=== PATIENT | female | born 1950 | race Caucasian/White ===

== ENCOUNTER 2021-06-28 17:17 | Inpatient (IN) | payer MEDICARE, BC ==
[~2021-06-28] VITALS: Ht 152.4 cm; Wt 66.2 kg
[2021-06-28] MEDS ORDERED: SODIUM CHLORIDE 0.9% 1000ML 1,000 ML IV SCH ×4 (18:00→20:30)
[2021-06-28 18:13] LABS: BASOPHILS # (AUTO) 0.1 (0.0-0.1); BASOPHILS % 0.7 % (0.0-1.0); HEMATOCRIT 50.1 % (34.2-44.1); HEMOGLOBIN 15.8 g/dL (12.0-16.0); LYMPHOCYTES # (AUTO) 0.9 (1.0-3.2); LYMPHOCYTES % 8.2 % (18.0-39.1); MEAN CORPUSCULAR HGB CONC 31.5 g/dL (31-35); MEAN CORPUSCULAR VOLUME 85.5 fL (81-99); MONOCYTES # (AUTO) 1.4 (0.2-0.8); MONOCYTES % 12.6 % (4.4-11.3); NEUTROPHILS # (AUTO) 8.8 (2.1-6.9); PLATELET COUNT 130 x10e3/uL (140-360); RED BLOOD COUNT 5.86 x10e6/uL (3.6-5.1); RED CELL DISTRIBUTION WIDTH 19.7 % (11.7-14.4)
[2021-06-28 20:41] LABS: CLARITY,URINE HAZY (CLEAR); COLOR,URINE YELLOW (YELLOW); LEUKOCYTE ESTERASE ,URINE NEGATIVE (NEGATIVE); NITRITE,URINE POSITIVE (NEGATIVE); PROTEIN,URINE DIPSTICK 2+ (NEGATIVE)
[2021-06-28 20:42] LABS: AMORPHOUS SEDIMENT,URINE FEW (FEW); BACTERIA,URINE MANY /HPF; EPITHELIAL CELLS,URINE FEW /LPF; KETONES,URINE TRACE (NEGATIVE); URINE UROBILINOGEN 0.2 mg/dL (0.2 - 1)
[2021-06-28 20:43] LABS: MUCUS,URINE MODERATE (RARE)
[2021-06-28 20:59] LABS: ALBUMIN 2.4 g/dL (3.5-5.0); ALBUMIN/GLOBULIN RATIO 0.8 (0.8-2.0); ANION GAP 11.9 mmol/L (8-16); CREATININE, SERUM 0.85 mg/dL (0.57-1.11)
[2021-06-28] MEDS ORDERED: CEFTRIAXONE 1 GM VIAL IV ONE (21:00)
[2021-06-28 21:03] LABS: POTASSIUM 2.9 mmol/L (3.5-5.1)
[2021-06-28] MEDS ORDERED: POTASSIUM CHLORIDE 20 MEQ TAB CR PO ONE (21:17)
[2021-06-28] MEDS ORDERED: SODIUM CHLORIDE 0.9% 50ML 50 ML ONE ×2 (21:17→22:53)
[2021-06-28] MEDS ORDERED: CEFTRIAXONE 1 GM VIAL ONE (21:17)
[2021-06-28] MEDS ORDERED: CEFTRIAXONE 1 GM in SODIUM CHLORIDE 0.9% 50ML 50 ML IV ONE (21:30)
[2021-06-28] MEDS ORDERED: ALBUTEROL/IPRATROPIUM 3 ML NEB NEB ONE (21:30)
[2021-06-28] MEDS ORDERED: POTASSIUM CHLORIDE 20 MEQ TAB CR PO STA (21:32)
[2021-06-28] MEDS ORDERED: IBANDRONATE SO150 MG PO (21:47)
[2021-06-28] MEDS ORDERED: PLAQUENIL200 MG PO (21:48)
[2021-06-28] MEDS ORDERED: PROVENTIL HFA6.7 GM INH (21:48)
[2021-06-28] MEDS ORDERED: ADVAIR 500/501 EA INH (21:48)
[2021-06-28] MEDS ORDERED: CYMBALTA30 MG PO (21:48)
[2021-06-28] MEDS ORDERED: TYLENOL #3 PO (21:48)
[2021-06-28] MEDS ORDERED: NIFEDIPINE ER30 M1 PO (21:48)
[2021-06-28] MEDS ORDERED: METOPROLOL SUCC50 MG PO (21:48)
[2021-06-28] MEDS ORDERED: CLOPIDOGREL75 MG PO (21:48)
[2021-06-28] MEDS ORDERED: TRAZODONE HCL100 MG PO (21:48)
[2021-06-28] MEDS ORDERED: PANTOPRAZOLE SO40 MG PO (21:48)
[2021-06-28] MEDS: ONDANSETRON HCL INJ 2MG/ML 2ML 2 MG/ML VIAL IV PRN (22:00)
[2021-06-28] MEDS: Morphine 4mg Syringe 4 MG/ML INJ IV PRN (22:00)
[2021-06-28 22:54] VITALS: BP 145/75
[2021-06-28 23:30] VITALS: BP 145/75
[2021-06-29 01:45] VITALS: BP 125/82
[2021-06-29 04:00] VITALS: BP 138/73
[2021-06-29] MEDS: SALMETEROL/FLUTICASONE 500/50 INH SCH ×3 (06:45→19:15)
[2021-06-29] MEDS ORDERED: ALBUTEROL SULFATE HFA 8GM INHALATION AEROSOL INH PRN (06:45)
[2021-06-29 06:49] LABS: BASOPHILS # (AUTO) 0.1 (0.0-0.1); BASOPHILS % 0.9 % (0.0-1.0); EOSINOPHILS % 0.1 % (0.0-6.0); HEMATOCRIT 44.6 % (34.2-44.1); HEMOGLOBIN 13.9 g/dL (12.0-16.0); LYMPHOCYTES # (AUTO) 0.6 (1.0-3.2); LYMPHOCYTES % 7.1 % (18.0-39.1); MEAN CORPUSCULAR HEMOGLOBIN 26.9 pg (28-32); MEAN CORPUSCULAR HGB CONC 31.2 g/dL (31-35); MEAN CORPUSCULAR VOLUME 86.3 fL (81-99); MONOCYTES # (AUTO) 0.7 (0.2-0.8); MONOCYTES % 7.9 % (4.4-11.3); NEUTROPHILS # (AUTO) 7.2 (2.1-6.9); NEUTROPHILS % 83.5 % (38.7-80.0); RED BLOOD COUNT 5.17 x10e6/uL (3.6-5.1); RED CELL DISTRIBUTION WIDTH 19.1 % (11.7-14.4)
[2021-06-29 06:53] LABS: PLATELET COUNT 105 x10e3/uL (140-360)
[2021-06-29 07:13] LABS: ANION GAP 12.1 mmol/L (8-16); CALCIUM 8.3 mg/dL (8.4-10.2); CREATININE, SERUM 0.97 mg/dL (0.57-1.11); POTASSIUM 3.1 mmol/L (3.5-5.1)
[2021-06-29] MEDS: SODIUM CHLORIDE 0.9% 1000ML 1,000 ML IV SCH ×2 (08:30→21:50)
[2021-06-29] MEDS ORDERED: CEFTRIAXONE 1 GM in SODIUM CHLORIDE 0.9% 50ML 50 ML IV SCH (09:00)
[2021-06-29] MEDS: HYDROXYCHLOROQUINE SULFATE 200 MG TAB PO SCH (09:00)
[2021-06-29] MEDS ORDERED: PANTOPRAZOLE SOD 40 MG TABEC PO SCH (09:00)
[2021-06-29 09:35] VITALS: BP 139/73
[2021-06-29] MEDS: CLOPIDOGREL BISULFATE 75 MG TAB PO SCH (09:56)
[2021-06-29] MEDS: DULOXETINE HCL 30 MG DELAYED RELEASE PO SCH (09:56)
[2021-06-29] MEDS: NIFEDIPINE CR 30 MG TAB PO SCH (09:57)
[2021-06-29] MEDS: PANTOPRAZOLE SOD 40 MG TABEC PO SCH (09:57)
[2021-06-29] MEDS: METOPROLOL SUCCINATE 50 MG TAB XL PO SCH (09:59)
[2021-06-29 12:29] VITALS: BP 137/74
[2021-06-29 18:00] VITALS: BP 115/63
[2021-06-29] MEDS ORDERED: DEXTROSE 50% SYRINGE 50 ML IV PRN (18:30)
[2021-06-29 20:00] VITALS: BP 107/60
[2021-06-29] MEDS: CEFTRIAXONE 1 GM in SODIUM CHLORIDE 0.9% 50ML 50 ML IV SCH (20:51)
[2021-06-29] MEDS: TRAZODONE HCL 50 MG TAB PO SCH (20:51)
[2021-06-29] MEDS ORDERED: INSULIN LISPRO 100 UNIT/1 ML 3ML VIAL SQ SCH (21:00)
[2021-06-30] VITALS (8 sets, daily range): BP systolic 96–123; BP diastolic 59–78
[2021-06-30] MEDS: ACETAMINOPHEN 325 MG TAB PO PRN (00:13)
[2021-06-30] MEDS: ONDANSETRON HCL INJ 2MG/ML 2ML 2 MG/ML VIAL IV PRN (07:16)
[2021-06-30] MEDS: Morphine 4mg Syringe 4 MG/ML INJ IV PRN (07:17)
[2021-06-30 07:39] LABS: BASOPHILS # (AUTO) 0.1 (0.0-0.1); BASOPHILS % 0.7 % (0.0-1.0); EOSINOPHILS % 0.2 % (0.0-6.0); HEMATOCRIT 46.4 % (34.2-44.1); HEMOGLOBIN 13.7 g/dL (12.0-16.0); LYMPHOCYTES # (AUTO) 0.8 (1.0-3.2); LYMPHOCYTES % 6.5 % (18.0-39.1); MEAN CORPUSCULAR HEMOGLOBIN 26.6 pg (28-32); MEAN CORPUSCULAR HGB CONC 29.5 g/dL (31-35); MEAN CORPUSCULAR VOLUME 90.1 fL (81-99); MONOCYTES # (AUTO) 0.8 (0.2-0.8); MONOCYTES % 6.5 % (4.4-11.3); NEUTROPHILS # (AUTO) 10.3 (2.1-6.9); NEUTROPHILS % 85.1 % (38.7-80.0); PLATELET COUNT 91 x10e3/uL (140-360); RED BLOOD COUNT 5.15 x10e6/uL (3.6-5.1); RED CELL DISTRIBUTION WIDTH 19.9 % (11.7-14.4)
[2021-06-30] MEDS: SALMETEROL/FLUTICASONE 500/50 INH SCH ×2 (07:58→20:15)
[2021-06-30 08:00] LABS: ANION GAP 9.4 mmol/L (8-16); CREATININE, SERUM 0.93 mg/dL (0.57-1.11); POTASSIUM 3.4 mmol/L (3.5-5.1)
[2021-06-30] MEDS: PANTOPRAZOLE SOD 40 MG TABEC PO SCH (08:37)
[2021-06-30] MEDS: HYDROXYCHLOROQUINE SULFATE 200 MG TAB PO SCH (08:37)
[2021-06-30] MEDS: CLOPIDOGREL BISULFATE 75 MG TAB PO SCH (08:37)
[2021-06-30] MEDS: DULOXETINE HCL 30 MG DELAYED RELEASE PO SCH (08:37)
[2021-06-30] MEDS: CEFTRIAXONE 1 GM in SODIUM CHLORIDE 0.9% 50ML 50 ML IV SCH (08:37)
[2021-06-30] MEDS: METOPROLOL SUCCINATE 50 MG TAB XL PO SCH (08:38)
[2021-06-30] MEDS: NIFEDIPINE CR 30 MG TAB PO SCH (08:38)
[2021-06-30] MEDS: SODIUM CHLORIDE 0.9% 1000ML 1,000 ML IV SCH ×2 (12:27→21:44)
[2021-06-30] MEDS ORDERED: POTASSIUM CHLORIDE 20 MEQ TAB CR PO ONE (14:00)
[2021-06-30] MEDS ORDERED: POTASSIUM CHLORIDE 10MEQ EA PO ONE (15:00)
[2021-06-30] MEDS: TRAZODONE HCL 50 MG TAB PO SCH (21:43)
[2021-07-01] VITALS (9 sets, daily range): BP systolic 84–115; BP diastolic 51–66
[2021-07-01] MEDS ORDERED: MULTIVITAMINS1 EAC6 PO (07:14)
[2021-07-01] MEDS ORDERED: CEPHALEXIN500 MG PO (07:14)
[2021-07-01 08:17] LABS: BASOPHILS # (AUTO) 0.1 (0.0-0.1); BASOPHILS % 0.6 % (0.0-1.0); EOSINOPHILS % 0.1 % (0.0-6.0); HEMOGLOBIN 12.9 g/dL (12.0-16.0); LYMPHOCYTES # (AUTO) 0.4 (1.0-3.2); LYMPHOCYTES % 3.4 % (18.0-39.1); MEAN CORPUSCULAR HGB CONC 32.3 g/dL (31-35); MEAN CORPUSCULAR VOLUME 83.9 fL (81-99); MONOCYTES # (AUTO) 0.6 (0.2-0.8); MONOCYTES % 4.7 % (4.4-11.3); NEUTROPHILS # (AUTO) 11.3 (2.1-6.9); NEUTROPHILS % 90.3 % (38.7-80.0); PLATELET COUNT 84 x10e3/uL (140-360); RED BLOOD COUNT 4.77 x10e6/uL (3.6-5.1); RED CELL DISTRIBUTION WIDTH 19.4 % (11.7-14.4)
[2021-07-01] MEDS: SALMETEROL/FLUTICASONE 500/50 INH SCH ×2 (08:30→19:05)
[2021-07-01 08:39] LABS: ANION GAP 11.4 mmol/L (8-16); CALCIUM 7.8 mg/dL (8.4-10.2); CREATININE, SERUM 0.88 mg/dL (0.57-1.11); POTASSIUM 3.4 mmol/L (3.5-5.1)
[2021-07-01] MEDS: CEFTRIAXONE 1 GM in SODIUM CHLORIDE 0.9% 50ML 50 ML IV SCH (08:55)
[2021-07-01] MEDS: HYDROXYCHLOROQUINE SULFATE 200 MG TAB PO SCH (09:04)
[2021-07-01] MEDS: DULOXETINE HCL 30 MG DELAYED RELEASE PO SCH (09:04)
[2021-07-01] MEDS: PANTOPRAZOLE SOD 40 MG TABEC PO SCH (09:04)
[2021-07-01] MEDS: NIFEDIPINE CR 30 MG TAB PO SCH (09:04)
[2021-07-01] MEDS: CLOPIDOGREL BISULFATE 75 MG TAB PO SCH (09:04)
[2021-07-01] MEDS: METOPROLOL SUCCINATE 50 MG TAB XL PO SCH (09:05)
[2021-07-01] MEDS: ACETAMINOPHEN 325 MG TAB PO PRN (12:25)
[2021-07-01] MEDS: SODIUM CHLORIDE 0.9% 1000ML 1,000 ML IV SCH (16:52)
[2021-07-01] MEDS ORDERED: TRAMADOL HCL 50 MG TAB PO PRN (19:15)
[2021-07-01] MEDS: TRAZODONE HCL 50 MG TAB PO SCH (20:53)
[2021-07-02] VITALS (8 sets, daily range): BP systolic 95–121; BP diastolic 52–72
[2021-07-02] MEDS: SALMETEROL/FLUTICASONE 500/50 INH SCH (07:13)
[2021-07-02] MEDS: SODIUM CHLORIDE 0.9% 1000ML 1,000 ML IV SCH (07:26)
[2021-07-02] MEDS: CEFTRIAXONE 1 GM in SODIUM CHLORIDE 0.9% 50ML 50 ML IV SCH (09:05)
[2021-07-02] MEDS: DULOXETINE HCL 30 MG DELAYED RELEASE PO SCH (09:06)
[2021-07-02] MEDS: CLOPIDOGREL BISULFATE 75 MG TAB PO SCH (09:06)
[2021-07-02] MEDS: HYDROXYCHLOROQUINE SULFATE 200 MG TAB PO SCH (09:06)
[2021-07-02] MEDS: NIFEDIPINE CR 30 MG TAB PO SCH (09:08)
[2021-07-02] MEDS: PANTOPRAZOLE SOD 40 MG TABEC PO SCH (09:08)
[2021-07-02] MEDS: METOPROLOL SUCCINATE 50 MG TAB XL PO SCH (09:08)
[2021-07-02] MEDS ORDERED: ONDANSETRON HCL 4 MG ORAL DISINTEGRATING TAB PO PRN (12:30)
[2021-07-02] MEDS ORDERED: FUROSEMIDE INJ 10 MG/ML 4 ML VIAL IV ONE (16:15)
[2021-07-02] MEDS ORDERED: FONDAPARINUX SODIUM 2.5 MG/0.5 ML SYR SQ SCH (18:00)
[2021-07-02] MEDS ORDERED: SODIUM CHLORIDE 0.9% 50ML 0 ML ONE (19:30)
[2021-07-02] MEDS ORDERED: IOPAMIDOL 370 MG/ML 200 ML INFUS..BTL INJ ONE (19:30)
[2021-07-02 20:04] LABS: BASOPHILS # (AUTO) 0.1 (0.0-0.1); BASOPHILS % 0.5 % (0.0-1.0); HEMATOCRIT 47.2 % (34.2-44.1); HEMOGLOBIN 15.2 g/dL (12.0-16.0); LYMPHOCYTES # (AUTO) 0.6 (1.0-3.2); LYMPHOCYTES % 3.8 % (18.0-39.1); MEAN CORPUSCULAR HEMOGLOBIN 27.1 pg (28-32); MEAN CORPUSCULAR HGB CONC 32.2 g/dL (31-35); MEAN CORPUSCULAR VOLUME 84.3 fL (81-99); MONOCYTES # (AUTO) 0.6 (0.2-0.8); MONOCYTES % 3.8 % (4.4-11.3); NEUTROPHILS # (AUTO) 13.9 (2.1-6.9); NEUTROPHILS % 90.7 % (38.7-80.0); RED CELL DISTRIBUTION WIDTH 20.5 % (11.7-14.4)
[2021-07-02 20:09] LABS: PLATELET COUNT 41 x10e3/uL (140-360)
[2021-07-02 20:19] LABS: ALBUMIN 1.9 g/dL (3.5-5.0); ALBUMIN/GLOBULIN RATIO 0.7 (0.8-2.0); ANION GAP 12.1 mmol/L (8-16); CALCIUM 7.9 mg/dL (8.4-10.2); CREATININE, SERUM 1.08 mg/dL (0.57-1.11); POTASSIUM 3.1 mmol/L (3.5-5.1)
[2021-07-02] MEDS: FUROSEMIDE INJ 10 MG/ML 2 ML VIAL IV SCH (21:00)
[2021-07-02] MEDS: TRAZODONE HCL 50 MG TAB PO SCH (21:00)
[2021-07-03] VITALS (8 sets, daily range): BP systolic 93–113; BP diastolic 62–76
[2021-07-03] MEDS ORDERED: SODIUM CHLORIDE 0.9% 50ML 50 ML ONE (05:43)
[2021-07-03] MEDS ORDERED: IOPAMIDOL 370 MG/ML 200 ML INFUS..BTL INJ ONE (05:43)
[2021-07-03] MEDS ORDERED: METOPROLOL SUCCINATE 25 MG TAB XL PO SCH (09:00)
[2021-07-03] MEDS: CEFTRIAXONE 1 GM in SODIUM CHLORIDE 0.9% 50ML 50 ML IV SCH (09:11)
[2021-07-03] MEDS: FUROSEMIDE INJ 10 MG/ML 2 ML VIAL IV SCH ×2 (09:11→21:29)
[2021-07-03] MEDS: METHYLPREDNISOLONE SOD SUCC 40 MG/ML VIAL 1ML IV SCH ×2 (09:12→16:17)
[2021-07-03] MEDS: DULOXETINE HCL 30 MG DELAYED RELEASE PO SCH (09:12)
[2021-07-03] MEDS: HYDROXYCHLOROQUINE SULFATE 200 MG TAB PO SCH (09:13)
[2021-07-03] MEDS: CLOPIDOGREL BISULFATE 75 MG TAB PO SCH (09:13)
[2021-07-03] MEDS: PANTOPRAZOLE SOD 40 MG TABEC PO SCH (09:13)
[2021-07-03] MEDS ORDERED: POTASSIUM CHL 40 MEQ in SODIUM CHLORIDE 0.9% 250ML 250 ML IV ONE (11:30)
[2021-07-03] MEDS ORDERED: MAGNESIUM SULFATE 2GM/50ML 50 ML IV ONE (11:30)
[2021-07-03] MEDS ORDERED: POTASSIUM CHLORIDE 20MEQ/100ML 200 ML IV ONE (12:00)
[2021-07-03] MEDS: TRAZODONE HCL 50 MG TAB PO SCH (22:00)
[2021-07-04] VITALS (11 sets, daily range): BP systolic 99–141; BP diastolic 76–93
[2021-07-04] MEDS: METHYLPREDNISOLONE SOD SUCC 40 MG/ML VIAL 1ML IV SCH ×3 (01:10→21:00)
[2021-07-04 06:10] LABS: BASOPHILS # (AUTO) 0.1 (0.0-0.1); BASOPHILS % 0.4 % (0.0-1.0); HEMATOCRIT 47.1 % (34.2-44.1); HEMOGLOBIN 15.4 g/dL (12.0-16.0); LYMPHOCYTES # (AUTO) 1.4 (1.0-3.2); LYMPHOCYTES % 6.5 % (18.0-39.1); MEAN CORPUSCULAR HEMOGLOBIN 26.7 pg (28-32); MEAN CORPUSCULAR HGB CONC 32.7 g/dL (31-35); MEAN CORPUSCULAR VOLUME 81.6 fL (81-99); MONOCYTES # (AUTO) 0.6 (0.2-0.8); MONOCYTES % 2.8 % (4.4-11.3); NEUTROPHILS # (AUTO) 18.4 (2.1-6.9); RED BLOOD COUNT 5.77 x10e6/uL (3.6-5.1); RED CELL DISTRIBUTION WIDTH 20.1 % (11.7-14.4)
[2021-07-04 06:29] LABS: PLATELET COUNT 45 x10e3/uL (140-360)
[2021-07-04 06:34] LABS: B-TYPE NATRIURETIC PEPTIDE2 294.6 pg/mL (0-100)
[2021-07-04 06:37] LABS: ALBUMIN/GLOBULIN RATIO 0.7 (0.8-2.0); ANION GAP 15.1 mmol/L (8-16); CALCIUM 8.1 mg/dL (8.4-10.2); CHOL/HDL RATIO 15.6 (3.0-3.6); CREATININE, SERUM 1.43 mg/dL (0.57-1.11); MAGNESIUM 2.3 MG/DL (1.3-2.1); POTASSIUM 3.1 mmol/L (3.5-5.1)
[2021-07-04 06:57] LABS: THYROID STIMULATING HORMONE 0.227 uIU/mL (0.350-4.940)
[2021-07-04] MEDS: CEFTRIAXONE 1 GM in SODIUM CHLORIDE 0.9% 50ML 50 ML IV SCH (08:37)
[2021-07-04] MEDS: FUROSEMIDE INJ 10 MG/ML 2 ML VIAL IV SCH (08:37)
[2021-07-04] MEDS ORDERED: POTASSIUM CHLORIDE 20 MEQ TAB CR PO ONE ×2 (08:40→09:30)
[2021-07-04] MEDS: HYDROXYCHLOROQUINE SULFATE 200 MG TAB PO SCH (08:54)
[2021-07-04] MEDS: DULOXETINE HCL 30 MG DELAYED RELEASE PO SCH (08:54)
[2021-07-04] MEDS: PANTOPRAZOLE SOD 40 MG TABEC PO SCH (08:54)
[2021-07-04] MEDS ORDERED: POTASSIUM CHLORIDE 20MEQ/100ML 100 ML IV ONE (09:00)
[2021-07-04] MEDS ORDERED: LORAZEPAM INJ 2 MG/ML VIAL IV SCH (10:00)
[2021-07-04 14:41] LABS: ABG HCO3 25 mmol/L (22-26); ABG PCO2 42 mmHg (35-45); ABG PH 7.39 (7.35-7.45); ABG PO2 58 mmHg (80-105); ABG TCO2 27
[2021-07-04] MEDS ORDERED: DEXTROSE 5%/LACTATED RINGERS 1,000 ML IV ONE (16:00)
[2021-07-04 16:28] LABS: ANION GAP 16.1 mmol/L (8-16); CALCIUM 8.4 mg/dL (8.4-10.2); CREATININE, SERUM 1.68 mg/dL (0.57-1.11); POTASSIUM 3.1 mmol/L (3.5-5.1)
[2021-07-04] MEDS: CEFEPIME 1 GM in SODIUM CHLORIDE 0.9% 50ML 50 ML IV SCH (20:57)
[2021-07-04] MEDS: TRAZODONE HCL 50 MG TAB PO SCH (21:00)
[2021-07-05] VITALS (19 sets, daily range): BP systolic 117–145; BP diastolic 70–103
[2021-07-05 06:33] LABS: BASOPHILS # (AUTO) 0.1 (0.0-0.1); BASOPHILS % 0.5 % (0.0-1.0); HEMATOCRIT 45.7 % (34.2-44.1); HEMOGLOBIN 14.8 g/dL (12.0-16.0); LYMPHOCYTES # (AUTO) 2.3 (1.0-3.2); LYMPHOCYTES % 10.7 % (18.0-39.1); MEAN CORPUSCULAR HEMOGLOBIN 26.8 pg (28-32); MEAN CORPUSCULAR HGB CONC 32.4 g/dL (31-35); MEAN CORPUSCULAR VOLUME 82.8 fL (81-99); MONOCYTES # (AUTO) 0.9 (0.2-0.8); MONOCYTES % 4.2 % (4.4-11.3); NEUTROPHILS # (AUTO) 17.4 (2.1-6.9); RED BLOOD COUNT 5.52 x10e6/uL (3.6-5.1); RED CELL DISTRIBUTION WIDTH 19.9 % (11.7-14.4)
[2021-07-05 06:53] LABS: PLATELET COUNT 45 x10e3/uL (140-360)
[2021-07-05 06:58] LABS: ALBUMIN 2.3 g/dL (3.5-5.0); ALBUMIN/GLOBULIN RATIO 0.9 (0.8-2.0); CALCIUM 8.6 mg/dL (8.4-10.2); CREATININE, SERUM 1.7 mg/dL (0.57-1.11); POTASSIUM 3.3 mmol/L (3.5-5.1)
[2021-07-05 07:07] LABS: ANION GAP 15.3 mmol/L (8-16)
[2021-07-05] MEDS: HYDROXYCHLOROQUINE SULFATE 200 MG TAB PO SCH (08:09)
[2021-07-05] MEDS: PANTOPRAZOLE SOD 40 MG TABEC PO SCH (08:09)
[2021-07-05] MEDS: DULOXETINE HCL 30 MG DELAYED RELEASE PO SCH (08:09)
[2021-07-05] MEDS: METHYLPREDNISOLONE SOD SUCC 40 MG/ML VIAL 1ML IV SCH (08:59)
[2021-07-05] MEDS: CEFEPIME 1 GM in SODIUM CHLORIDE 0.9% 50ML 50 ML IV SCH (08:59)
[2021-07-05] MEDS: METOPROLOL TARTRATE INJ 1 MG/ML VIAL IV PRN ×2 (09:00→14:06)
[2021-07-05] MEDS: METOPROLOL TARTRATE INJ 1 MG/ML VIAL IV SCH ×2 (12:00→17:23)
[2021-07-05] MEDS ORDERED: DEXTROSE 5% 500ML 500 ML IV ONE (13:15)
[2021-07-05] MEDS ORDERED: POTASSIUM CHLORIDE 20 MEQ TAB CR PO NR (15:30)
[2021-07-05] MEDS: ACYCLOVIR SODIUM INJ 500 MG in SODIUM CHLORIDE 0.9% 100 ML 100 ML IV SCH (15:35)
[2021-07-05] MEDS: DEXTROSE 5% 1,000 ML IV SCH ×2 (16:16→22:45)
[2021-07-05] MEDS ORDERED: LACTATED RINGER'S 1,000 ML ONE (16:26)
[2021-07-05] MEDS ORDERED: LACTATED RINGER'S 250 ML IV ONE (16:30)
[2021-07-05] MEDS: POTASSIUM CHLORIDE 20MEQ/100ML 100 ML IV SCH ×2 (16:37→17:10)
[2021-07-05 16:51] LABS: INR 2.19; PROTHROMBIN TIME 25.6 seconds (11.9-14.5)
[2021-07-05] MEDS: Ampicillin INJ 2 GM in SODIUM CHLORIDE 0.9% 100 ML IV SCH (17:10)
[2021-07-05] MEDS: ACETAMINOPHEN 1000 MG/100 ML IV PRN (17:36)
[2021-07-05] MEDS ORDERED: LIDOCAINE HCL 1% LOCAL INJ 20 ML VIAL ONE (17:39)
[2021-07-05 18:55] LABS: BASOPHILS # (AUTO) 0.1 (0.0-0.1); BASOPHILS % 0.4 % (0.0-1.0); HEMATOCRIT 38.9 % (34.2-44.1); HEMOGLOBIN 12.6 g/dL (12.0-16.0); LYMPHOCYTES # (AUTO) 3.1 (1.0-3.2); LYMPHOCYTES % 14.7 % (18.0-39.1); MEAN CORPUSCULAR HEMOGLOBIN 26.9 pg (28-32); MEAN CORPUSCULAR HGB CONC 32.4 g/dL (31-35); MEAN CORPUSCULAR VOLUME 82.9 fL (81-99); MONOCYTES # (AUTO) 0.9 (0.2-0.8); MONOCYTES % 4.3 % (4.4-11.3); NEUTROPHILS # (AUTO) 15.9 (2.1-6.9); NEUTROPHILS % 76.5 % (38.7-80.0); PLATELET COUNT 51 x10e3/uL (140-360); RED BLOOD COUNT 4.69 x10e6/uL (3.6-5.1); RED CELL DISTRIBUTION WIDTH 19.6 % (11.7-14.4)
[2021-07-05 19:13] LABS: ANION GAP 13.7 mmol/L (8-16); CALCIUM 8.3 mg/dL (8.4-10.2); CREATININE, SERUM 1.66 mg/dL (0.57-1.11); MAGNESIUM 2.4 MG/DL (1.3-2.1); PHOSPHORUS 2.2 MG/DL (2.3-4.7); POTASSIUM 3.7 mmol/L (3.5-5.1)
[2021-07-05] MEDS: CEFTRIAXONE 2 GM in SODIUM CHLORIDE 0.9% 100 ML IV SCH (21:00)
[2021-07-06] VITALS (12 sets, daily range): BP systolic 88–104; BP diastolic 63–94
[2021-07-06] MEDS: METOPROLOL TARTRATE INJ 1 MG/ML VIAL IV SCH ×3 (00:20→11:21)
[2021-07-06] MEDS: ACETAMINOPHEN 1000 MG/100 ML IV PRN ×2 (00:30→06:16)
[2021-07-06] MEDS: Ampicillin INJ 2 GM in SODIUM CHLORIDE 0.9% 100 ML IV SCH ×4 (01:27→21:50)
[2021-07-06] MEDS: METOPROLOL TARTRATE INJ 1 MG/ML VIAL IV PRN (02:00)
[2021-07-06 03:07] LABS: BLAST CELLS % MANUAL 3; EOSINOPHILS % (MANUAL) 2 % (0-7); LYMPHOCYTES % (MANUAL) 17 % (19-48); MONOCYTES % (MANUAL) 5 % (3.4-9.0); NEUTROPHILS % (MANUAL) 73 % (40-74)
[2021-07-06 03:08] LABS: RBC MORPHOLOGY COMMENT NORMAL
[2021-07-06 03:09] LABS: PLATELET ESTIMATE MARKEDLY DECREASED; PLATELET MORPHOLOGY COMMENT NORMAL
[2021-07-06] MEDS: ACYCLOVIR SODIUM INJ 500 MG in SODIUM CHLORIDE 0.9% 100 ML 100 ML IV SCH ×2 (03:30→15:02)
[2021-07-06 05:36] LABS: BASOPHILS # (AUTO) 0.1 (0.0-0.1); BASOPHILS % 0.3 % (0.0-1.0); HEMATOCRIT 32.8 % (34.2-44.1); HEMOGLOBIN 10.3 g/dL (12.0-16.0); LYMPHOCYTES # (AUTO) 3.2 (1.0-3.2); LYMPHOCYTES % 13.6 % (18.0-39.1); MEAN CORPUSCULAR HEMOGLOBIN 26.8 pg (28-32); MEAN CORPUSCULAR HGB CONC 31.4 g/dL (31-35); MEAN CORPUSCULAR VOLUME 85.4 fL (81-99); MONOCYTES # (AUTO) 0.9 (0.2-0.8); MONOCYTES % 3.8 % (4.4-11.3); NEUTROPHILS # (AUTO) 18.6 (2.1-6.9); NEUTROPHILS % 78.5 % (38.7-80.0); PLATELET COUNT 60 x10e3/uL (140-360); RED BLOOD COUNT 3.84 x10e6/uL (3.6-5.1); RED CELL DISTRIBUTION WIDTH 19.5 % (11.7-14.4)
[2021-07-06 05:47] LABS: INR 2.64; PROTHROMBIN TIME 29.7 seconds (11.9-14.5)
[2021-07-06 05:56] LABS: ALBUMIN 2.1 g/dL (3.5-5.0); ALBUMIN/GLOBULIN RATIO 0.9 (0.8-2.0); ANION GAP 15.7 mmol/L (8-16); CREATININE, SERUM 1.81 mg/dL (0.57-1.11); POTASSIUM 3.7 mmol/L (3.5-5.1)
[2021-07-06] MEDS ORDERED: PHYTONADIONE 10 MG/ML AMP IM ONE (06:30)
[2021-07-06] MEDS ORDERED: DEXTROSE 5% 1,000 ML IV SCH (07:00)
[2021-07-06] MEDS ORDERED: FUROSEMIDE INJ 10 MG/ML 2 ML VIAL IV ONE (07:15)
[2021-07-06] MEDS ORDERED: FUROSEMIDE INJ 10 MG/ML 4 ML VIAL ONE (07:40)
[2021-07-06] MEDS ORDERED: SODIUM CHLORIDE 0.9% 250ML 250 ML ONE (07:40)
[2021-07-06] MEDS: DULOXETINE HCL 30 MG DELAYED RELEASE PO SCH (08:39)
[2021-07-06 09:02] LABS: ABG HCO3 27 mmol/L (22-26); ABG PCO2 41 mmHg (35-45); ABG PH 7.42 (7.35-7.45); ABG PO2 81 mmHg (80-105); ABG TCO2 28
[2021-07-06] MEDS: CEFTRIAXONE 2 GM in SODIUM CHLORIDE 0.9% 100 ML IV SCH ×2 (09:18→20:56)
[2021-07-06] MEDS: HALOPERIDOL LACTATE 5 MG/ML VIAL IV PRN ×2 (09:19→18:30)
[2021-07-06] MEDS: DEXMEDETOMIDINE 400MCG/NS100ML 100 ML IV PRN ×2 (11:20→20:57)
[2021-07-06] MEDS ORDERED: SODIUM CHLORIDE 0.45% 1,000 ML IV ONE (12:15)
[2021-07-06] MEDS: DEXTROSE 5% 1,000 ML IV SCH ×3 (13:57→21:50)
[2021-07-06] MEDS: VASOPRESSIN 60 UNIT in DEXTROSE 5% 50ML 57 ML IV SCH (13:58)
[2021-07-06 18:29] LABS: BASOPHILS % 0.1 % (0.0-1.0); HEMATOCRIT 27.8 % (34.2-44.1); HEMOGLOBIN 8.4 g/dL (12.0-16.0); LYMPHOCYTES # (AUTO) 2.9 (1.0-3.2); LYMPHOCYTES % 13.9 % (18.0-39.1); MEAN CORPUSCULAR HEMOGLOBIN 26.7 pg (28-32); MEAN CORPUSCULAR HGB CONC 30.2 g/dL (31-35); MEAN CORPUSCULAR VOLUME 88.3 fL (81-99); MONOCYTES # (AUTO) 0.7 (0.2-0.8); MONOCYTES % 3.4 % (4.4-11.3); NEUTROPHILS # (AUTO) 16.8 (2.1-6.9); NEUTROPHILS % 80.1 % (38.7-80.0); PLATELET COUNT 102 x10e3/uL (140-360); RED BLOOD COUNT 3.15 x10e6/uL (3.6-5.1); RED CELL DISTRIBUTION WIDTH 19.8 % (11.7-14.4)
[2021-07-06 19:08] LABS: ANION GAP 11.8 mmol/L (8-16); CALCIUM 7.8 mg/dL (8.4-10.2); CREATININE, SERUM 2.01 mg/dL (0.57-1.11); MAGNESIUM 2.2 MG/DL (1.3-2.1); POTASSIUM 3.8 mmol/L (3.5-5.1)
[2021-07-06 19:30] LABS: PHOSPHORUS 3.2 MG/DL (2.3-4.7)
[2021-07-06] MEDS ORDERED: ACETAMINOPHEN 1000 MG/100 ML IV PRN (20:00)
[2021-07-07] VITALS (12 sets, daily range): BP systolic 75–126; BP diastolic 54–76
[2021-07-07] MEDS: ACYCLOVIR SODIUM INJ 500 MG in SODIUM CHLORIDE 0.9% 100 ML 100 ML IV SCH ×2 (03:30→15:30)
[2021-07-07] MEDS: DEXTROSE 5% 1,000 ML IV SCH ×3 (04:14→18:45)
[2021-07-07] MEDS: Ampicillin INJ 2 GM in SODIUM CHLORIDE 0.9% 100 ML IV SCH ×3 (06:08→21:47)
[2021-07-07 07:16] LABS: BASOPHILS % 0.1 % (0.0-1.0); HEMATOCRIT 23.4 % (34.2-44.1); LYMPHOCYTES # (AUTO) 2.3 (1.0-3.2); LYMPHOCYTES % 13.7 % (18.0-39.1); MEAN CORPUSCULAR HEMOGLOBIN 26.7 pg (28-32); MEAN CORPUSCULAR HGB CONC 29.1 g/dL (31-35); MEAN CORPUSCULAR VOLUME 91.8 fL (81-99); MONOCYTES # (AUTO) 0.5 (0.2-0.8); MONOCYTES % 2.9 % (4.4-11.3); NEUTROPHILS # (AUTO) 13.5 (2.1-6.9); NEUTROPHILS % 81.7 % (38.7-80.0); PLATELET COUNT 74 x10e3/uL (140-360); RED BLOOD COUNT 2.55 x10e6/uL (3.6-5.1)
[2021-07-07 07:25] LABS: HEMOGLOBIN 6.8 g/dL (12.0-16.0)
[2021-07-07 08:22] LABS: ANION GAP 13.6 mmol/L (8-16); CALCIUM 7.1 mg/dL (8.4-10.2); CREATININE, SERUM 1.95 mg/dL (0.57-1.11); MAGNESIUM 2.1 MG/DL (1.3-2.1); POTASSIUM 3.6 mmol/L (3.5-5.1)
[2021-07-07] MEDS ORDERED: ACETAMINOPHEN 325 MG TAB PO STA (08:36)
[2021-07-07] MEDS ORDERED: SODIUM CHLORIDE 0.9% 250ML 250 ML IV ONE (08:45)
[2021-07-07] MEDS ORDERED: CALCIUM GLUCONATE 10% INJ 9.3 MEQ in SODIUM CHLORIDE 0.9% 100 ML 100 ML IV ONE (09:00)
[2021-07-07] MEDS: DULOXETINE HCL 30 MG DELAYED RELEASE PO SCH (09:00)
[2021-07-07] MEDS ORDERED: METRONIDAZOLE 500MG/NS 100ML 100 ML IV SCH (09:00)
[2021-07-07] MEDS ORDERED: SODIUM CHLORIDE 0.9% 250ML 250 ML ONE (09:35)
[2021-07-07 09:46] LABS: ABG HCO3 25 mmol/L (22-26); ABG PCO2 39 mmHg (35-45); ABG PH 7.41 (7.35-7.45); ABG PO2 138 mmHg (80-105); ABG TCO2 26
[2021-07-07] MEDS: CEFTRIAXONE 2 GM in SODIUM CHLORIDE 0.9% 100 ML IV SCH ×2 (11:00→22:35)
[2021-07-07] MEDS ORDERED: ACETAMINOPHEN 1000 MG/100 ML IV ONE (12:00)
[2021-07-07] MEDS: VASOPRESSIN 60 UNIT in DEXTROSE 5% 50ML 57 ML IV SCH (13:30)
[2021-07-07 17:44] LABS: INR 1.13; PROTHROMBIN TIME 15.3 seconds (11.9-14.5)
[2021-07-07 18:04] LABS: HYPOCHROMASIA SLIGHT; LYMPHOCYTES % (MANUAL) 5 % (19-48); MONOCYTES % (MANUAL) 12 % (3.4-9.0); NEUTROPHILS % (MANUAL) 83 % (40-74); NUCLEATED RED BLOOD CELLS 3; RBC MORPHOLOGY COMMENT NORMAL
[2021-07-07 18:05] LABS: PLATELET ESTIMATE MODERATELY DECREASED; PLATELET MORPHOLOGY COMMENT FEW LARGE
[2021-07-08] VITALS (9 sets, daily range): BP systolic 135–151; BP diastolic 72–95
[2021-07-08] MEDS: DEXTROSE 5% 1,000 ML IV SCH (03:29)
[2021-07-08] MEDS: ACYCLOVIR SODIUM INJ 500 MG in SODIUM CHLORIDE 0.9% 100 ML 100 ML IV SCH ×2 (03:29→15:40)
[2021-07-08 05:07] LABS: BASOPHILS # (AUTO) 0.1 (0.0-0.1); BASOPHILS % 0.2 % (0.0-1.0); EOSINOPHILS # (AUTO) 0.2 (0.0-0.4); EOSINOPHILS % 0.5 % (0.0-6.0); HEMATOCRIT 30.6 % (34.2-44.1); HEMOGLOBIN 9.8 g/dL (12.0-16.0); LYMPHOCYTES # (AUTO) 2.3 (1.0-3.2); LYMPHOCYTES % 7.1 % (18.0-39.1); MEAN CORPUSCULAR HEMOGLOBIN 27.7 pg (28-32); MEAN CORPUSCULAR VOLUME 86.4 fL (81-99); MONOCYTES # (AUTO) 0.8 (0.2-0.8); MONOCYTES % 2.3 % (4.4-11.3); NEUTROPHILS # (AUTO) 28.4 (2.1-6.9); PLATELET COUNT 93 x10e3/uL (140-360); RED BLOOD COUNT 3.54 x10e6/uL (3.6-5.1); RED CELL DISTRIBUTION WIDTH 18.5 % (11.7-14.4)
[2021-07-08 05:13] LABS: INR 0.99; PROTHROMBIN TIME 13.8 seconds (11.9-14.5)
[2021-07-08] MEDS: Ampicillin INJ 2 GM in SODIUM CHLORIDE 0.9% 100 ML IV SCH ×2 (05:25→15:19)
[2021-07-08 05:44] LABS: ALBUMIN/GLOBULIN RATIO 0.8 (0.8-2.0); ANION GAP 13.6 mmol/L (8-16); CALCIUM 7.5 mg/dL (8.4-10.2); CREATININE, SERUM 1.53 mg/dL (0.57-1.11)
[2021-07-08 05:46] LABS: POTASSIUM 2.6 mmol/L (3.5-5.1)
[2021-07-08 06:02] LABS: MAGNESIUM 1.7 MG/DL (1.3-2.1); PHOSPHORUS 2.1 MG/DL (2.3-4.7)
[2021-07-08] MEDS ORDERED: POTASSIUM CHLORIDE 20MEQ/100ML 200 ML IV ONE (07:10)
[2021-07-08 07:43] LABS: EOSINOPHILS % (MANUAL) 1 % (0-7); LYMPHOCYTES % (MANUAL) 3 % (19-48); MONOCYTES % (MANUAL) 1 % (3.4-9.0); NEUTROPHILS % (MANUAL) 94 % (40-74); NUCLEATED RED BLOOD CELLS 1; PLATELET ESTIMATE MODERATELY DECREASED; PLATELET MORPHOLOGY COMMENT NORMAL; RBC MORPHOLOGY COMMENT NORMAL
[2021-07-08] MEDS: DULOXETINE HCL 30 MG DELAYED RELEASE PO SCH (09:00)
[2021-07-08] MEDS ORDERED: FENTANYL CITRATE/PF 100MCG/2 ML INJ ONE (09:14)
[2021-07-08] MEDS ORDERED: MIDAZOLAM HCL 2 MG/2 ML VIAL ONE (09:14)
[2021-07-08] MEDS ORDERED: LIDOCAINE HCL 1% LOCAL INJ 20 ML VIAL ONE (09:15)
[2021-07-08] MEDS: CEFTRIAXONE 2 GM in SODIUM CHLORIDE 0.9% 100 ML IV SCH (10:16)
[2021-07-08 10:59] LABS: APPEARANCE,CSF CLOUDY (CLEAR); COLOR,CSF RED (COLORLESS); TUBE NUMBER 3
[2021-07-08 11:14] LABS: WHITE BLOOD CELL,CSF 16 cells/uL (0-5)
[2021-07-08 11:30] LABS: TOTAL PROTEIN,CSF 195.6 mg/dL (15-40)
[2021-07-08] MEDS ORDERED: POTASSIUM CHLORIDE 10MEQ/100ML 400 ML IV ONE (11:30)
[2021-07-08] MEDS ORDERED: CALCIUM GLUCONATE 10% INJ 9.3 MEQ in SODIUM CHLORIDE 0.9% 100 ML 100 ML IV ONE (12:30)
[2021-07-08 12:43] LABS: LYMPHOCYTES,CSF 71 % (40-80); MONOCYTES,CSF 9 %; NEUTROPHILS,CSF 20 % (0-6)
[2021-07-08] MEDS: VASOPRESSIN 60 UNIT in DEXTROSE 5% 50ML 57 ML IV SCH (12:56)
[2021-07-08] MEDS: D5.45%NS/KCL 20MEQ 1,000 ML IV SCH (13:01)
[2021-07-08 13:51] LABS: ANION GAP 12.5 mmol/L (8-16); CALCIUM 7.3 mg/dL (8.4-10.2); CREATININE, SERUM 1.47 mg/dL (0.57-1.11); POTASSIUM 3.5 mmol/L (3.5-5.1)
[2021-07-08] MEDS ORDERED: POTASSIUM PHOSPHATE 15 MM in SODIUM CHLORIDE 0.9% 250ML 250 ML IV ONE (15:00)
[2021-07-08] MEDS ORDERED: FUROSEMIDE INJ 10 MG/ML 2 ML VIAL IV NR (17:45)
[2021-07-08] MEDS: VANCOMYCIN HCL 125 MG CAPSULE NG SCH ×2 (21:20→23:27)
[2021-07-09] VITALS (15 sets, daily range): BP systolic 72–151; BP diastolic 49–88
[2021-07-09 05:12] LABS: BASOPHILS # (AUTO) 0.1 (0.0-0.1); BASOPHILS % 0.3 % (0.0-1.0); EOSINOPHILS % 0.1 % (0.0-6.0); HEMATOCRIT 36.1 % (34.2-44.1); HEMOGLOBIN 11.4 g/dL (12.0-16.0); LYMPHOCYTES # (AUTO) 1.5 (1.0-3.2); LYMPHOCYTES % 4.3 % (18.0-39.1); MEAN CORPUSCULAR HEMOGLOBIN 27.9 pg (28-32); MEAN CORPUSCULAR HGB CONC 31.6 g/dL (31-35); MEAN CORPUSCULAR VOLUME 88.3 fL (81-99); MONOCYTES # (AUTO) 0.8 (0.2-0.8); MONOCYTES % 2.2 % (4.4-11.3); NEUTROPHILS # (AUTO) 30.8 (2.1-6.9); NEUTROPHILS % 89.6 % (38.7-80.0); PLATELET COUNT 132 x10e3/uL (140-360); RED BLOOD COUNT 4.09 x10e6/uL (3.6-5.1); RED CELL DISTRIBUTION WIDTH 18.6 % (11.7-14.4)
[2021-07-09] MEDS: VANCOMYCIN HCL 125 MG CAPSULE NG SCH (05:30)
[2021-07-09 05:38] LABS: MAGNESIUM 1.8 MG/DL (1.3-2.1); PHOSPHORUS 3.9 MG/DL (2.3-4.7)
[2021-07-09 06:20] LABS: ALBUMIN 2.1 g/dL (3.5-5.0); ALBUMIN/GLOBULIN RATIO 0.7 (0.8-2.0); ANION GAP 16.2 mmol/L (8-16); CALCIUM 7.9 mg/dL (8.4-10.2); CREATININE, SERUM 1.79 mg/dL (0.57-1.11); POTASSIUM 4.2 mmol/L (3.5-5.1)
[2021-07-09] MEDS: DULOXETINE HCL 30 MG DELAYED RELEASE PO SCH (07:41)
[2021-07-09] MEDS: D5.45%NS/KCL 20MEQ 1,000 ML IV SCH ×2 (07:51→14:29)
[2021-07-09] MEDS ORDERED: FUROSEMIDE INJ 10 MG/ML 4 ML VIAL IV ONE (10:15)
[2021-07-09] MEDS ORDERED: CHLOROTHIAZIDE SODIUM 500 MG VIAL IV ONE (10:30)
[2021-07-09] MEDS ORDERED: VANCOMYCIN 250MG/5ML ORAL SOLN NG SCH (12:00)
[2021-07-09] MEDS: VASOPRESSIN 60 UNIT in DEXTROSE 5% 50ML 57 ML IV SCH (13:30)
[2021-07-09 13:43] LABS: ABG PCO2 44 mmHg (35-45); ABG PH 7.34 (7.35-7.45); ABG PO2 83 mmHg (80-105)
[2021-07-09 13:44] LABS: ABG HCO3 24 mmol/L (22-26); ABG TCO2 25
[2021-07-09] MEDS: VANCOMYCIN 250MG/5ML ORAL SOLN NG SCH ×3 (14:28→23:55)
[2021-07-09] MEDS ORDERED: WATER STERILE 10 ML VIAL ONE (19:30)
[2021-07-09] MEDS ORDERED: ETOMIDATE 2 MG/ML 10 ML INJ IV ONE (19:30)
[2021-07-09] MEDS ORDERED: VECURONIUM BROMIDE FOR INJ 20 MG VIAL ONE (19:30)
[2021-07-09] MEDS ORDERED: SUCCINYLCHOLINE CHLORIDE 20 MG/ML 10ML VIAL ONE (19:30)
[2021-07-09] MEDS: Morphine 2mg Syringe 2 MG/ML SYR IV PRN (23:55)
[2021-07-10] VITALS (10 sets, daily range): BP systolic 111–130; BP diastolic 63–80
[2021-07-10 05:08] LABS: BASOPHILS # (AUTO) 0.1 (0.0-0.1); BASOPHILS % 0.3 % (0.0-1.0); EOSINOPHILS # (AUTO) 0.1 (0.0-0.4); EOSINOPHILS % 0.3 % (0.0-6.0); HEMATOCRIT 30.5 % (34.2-44.1); HEMOGLOBIN 9.7 g/dL (12.0-16.0); LYMPHOCYTES % 6.6 % (18.0-39.1); MEAN CORPUSCULAR HEMOGLOBIN 28.7 pg (28-32); MEAN CORPUSCULAR HGB CONC 31.8 g/dL (31-35); MEAN CORPUSCULAR VOLUME 90.2 fL (81-99); MONOCYTES # (AUTO) 0.8 (0.2-0.8); MONOCYTES % 2.7 % (4.4-11.3); NEUTROPHILS # (AUTO) 26.3 (2.1-6.9); NEUTROPHILS % 88.1 % (38.7-80.0); PLATELET COUNT 120 x10e3/uL (140-360); RED BLOOD COUNT 3.38 x10e6/uL (3.6-5.1); RED CELL DISTRIBUTION WIDTH 18.6 % (11.7-14.4)
[2021-07-10 05:57] LABS: ALBUMIN 1.8 g/dL (3.5-5.0); ALBUMIN/GLOBULIN RATIO 0.6 (0.8-2.0); ANION GAP 12.9 mmol/L (8-16); CALCIUM 7.4 mg/dL (8.4-10.2); CREATININE, SERUM 1.68 mg/dL (0.57-1.11); MAGNESIUM 1.7 MG/DL (1.3-2.1)
[2021-07-10 06:01] LABS: POTASSIUM 2.9 mmol/L (3.5-5.1)
[2021-07-10] MEDS: VANCOMYCIN 250MG/5ML ORAL SOLN NG SCH ×3 (06:08→18:49)
[2021-07-10] MEDS ORDERED: POTASSIUM CHLORIDE 20MEQ/100ML 300 ML IV ONE (06:45)
[2021-07-10] MEDS: DULOXETINE HCL 30 MG DELAYED RELEASE PO SCH (08:28)
[2021-07-10 09:01] LABS: LYMPHOCYTES % (MANUAL) 5 % (19-48); MONOCYTES % (MANUAL) 4 % (3.4-9.0); MYELOCYTES % (MANUAL) 1 % (0-0); NEUTROPHILS % (MANUAL) 90 % (40-74); NUCLEATED RED BLOOD CELLS 1; PLATELET ESTIMATE SLIGHTLY DECREASED; PLATELET MORPHOLOGY COMMENT NORMAL; POLYCHROMASIA FEW; RBC MORPHOLOGY COMMENT NORMAL
[2021-07-10] MEDS ORDERED: DEXTROSE 5% 1,000 ML IV SCH (11:30)
[2021-07-10] MEDS ORDERED: CALCIUM GLUCONATE 10% INJ 9.3 MEQ in SODIUM CHLORIDE 0.9% 100 ML 100 ML IV ONE (12:00)
[2021-07-10] MEDS ORDERED: POTASSIUM CHLORIDE 20 MEQ TAB CR PO SCH (15:00)
[2021-07-10] MEDS: KCL 20 MEQ PACKET/ ORAL SOLN NG SCH ×2 (16:05→20:24)
[2021-07-10] MEDS: METRONIDAZOLE 500MG/NS 100ML 100 ML IV SCH ×2 (16:05→20:24)
[2021-07-11] VITALS (10 sets, daily range): BP systolic 103–152; BP diastolic 61–91
[2021-07-11] MEDS: METOPROLOL TARTRATE INJ 1 MG/ML VIAL IV SCH ×3 (00:46→21:40)
[2021-07-11] MEDS: VANCOMYCIN 250MG/5ML ORAL SOLN NG SCH ×4 (00:49→18:00)
[2021-07-11] MEDS: METRONIDAZOLE 500MG/NS 100ML 100 ML IV SCH ×3 (06:54→21:40)
[2021-07-11 07:42] LABS: BASOPHILS # (AUTO) 0.1 (0.0-0.1); BASOPHILS % 0.2 % (0.0-1.0); EOSINOPHILS # (AUTO) 0.1 (0.0-0.4); EOSINOPHILS % 0.4 % (0.0-6.0); HEMATOCRIT 31.2 % (34.2-44.1); HEMOGLOBIN 9.1 g/dL (12.0-16.0); LYMPHOCYTES # (AUTO) 1.6 (1.0-3.2); LYMPHOCYTES % 6.3 % (18.0-39.1); MEAN CORPUSCULAR HEMOGLOBIN 27.8 pg (28-32); MEAN CORPUSCULAR HGB CONC 29.2 g/dL (31-35); MEAN CORPUSCULAR VOLUME 95.4 fL (81-99); MONOCYTES # (AUTO) 0.9 (0.2-0.8); MONOCYTES % 3.7 % (4.4-11.3); NEUTROPHILS # (AUTO) 22.4 (2.1-6.9); NEUTROPHILS % 88.1 % (38.7-80.0); PLATELET COUNT 141 x10e3/uL (140-360); RED BLOOD COUNT 3.27 x10e6/uL (3.6-5.1); RED CELL DISTRIBUTION WIDTH 18.8 % (11.7-14.4)
[2021-07-11 08:05] LABS: ALBUMIN 1.8 g/dL (3.5-5.0); ALBUMIN/GLOBULIN RATIO 0.6 (0.8-2.0); CREATININE, SERUM 1.28 mg/dL (0.57-1.11); MAGNESIUM 1.5 MG/DL (1.3-2.1)
[2021-07-11] MEDS: KCL 20 MEQ PACKET/ ORAL SOLN NG SCH ×3 (09:00→21:40)
[2021-07-11] MEDS ORDERED: POTASSIUM PHOSPHATE 15 MM in SODIUM CHLORIDE 0.9% 250ML 250 ML IV ONE (09:30)
[2021-07-11 09:42] LABS: CREATININE, SERUM 1.24 mg/dL (0.57-1.11); MAGNESIUM 1.7 MG/DL (1.3-2.1); PHOSPHORUS 2.1 MG/DL (2.3-4.7)
[2021-07-11 10:41] LABS: ANISOCYTOSIS MODERATE; HYPOCHROMASIA SLIGHT; LYMPHOCYTES % (MANUAL) 1 % (19-48); MONOCYTES % (MANUAL) 5 % (3.4-9.0); NEUTROPHILS % (MANUAL) 92 % (40-74); PLATELET ESTIMATE ADEQUATE; PLATELET MORPHOLOGY COMMENT NORMAL; RBC MORPHOLOGY COMMENT ABNORMAL
[2021-07-11] MEDS: DULOXETINE HCL 30 MG DELAYED RELEASE PO SCH (10:56)
[2021-07-12] VITALS (13 sets, daily range): BP systolic 103–124; BP diastolic 49–82
[2021-07-12] MEDS: VANCOMYCIN 250MG/5ML ORAL SOLN NG SCH ×5 (00:11→23:28)
[2021-07-12 06:07] LABS: BASOPHILS # (AUTO) 0.1 (0.0-0.1); BASOPHILS % 0.3 % (0.0-1.0); EOSINOPHILS # (AUTO) 0.1 (0.0-0.4); EOSINOPHILS % 0.3 % (0.0-6.0); HEMATOCRIT 32.1 % (34.2-44.1); HEMOGLOBIN 9.6 g/dL (12.0-16.0); LYMPHOCYTES # (AUTO) 1.7 (1.0-3.2); MEAN CORPUSCULAR HEMOGLOBIN 28.7 pg (28-32); MEAN CORPUSCULAR HGB CONC 29.9 g/dL (31-35); MEAN CORPUSCULAR VOLUME 95.8 fL (81-99); MONOCYTES # (AUTO) 1.1 (0.2-0.8); MONOCYTES % 5.4 % (4.4-11.3); NEUTROPHILS # (AUTO) 17.4 (2.1-6.9); NEUTROPHILS % 84.5 % (38.7-80.0); PLATELET COUNT 189 x10e3/uL (140-360); RED BLOOD COUNT 3.35 x10e6/uL (3.6-5.1); RED CELL DISTRIBUTION WIDTH 20.2 % (11.7-14.4)
[2021-07-12] MEDS: METRONIDAZOLE 500MG/NS 100ML 100 ML IV SCH ×3 (06:13→21:05)
[2021-07-12 06:28] LABS: ALBUMIN 1.8 g/dL (3.5-5.0); ALBUMIN/GLOBULIN RATIO 0.6 (0.8-2.0); ANION GAP 10.9 mmol/L (8-16); CALCIUM 8.1 mg/dL (8.4-10.2); CREATININE, SERUM 1.1 mg/dL (0.57-1.11); MAGNESIUM 1.7 MG/DL (1.3-2.1); PHOSPHORUS 2.9 MG/DL (2.3-4.7); POTASSIUM 4.9 mmol/L (3.5-5.1)
[2021-07-12] MEDS: KCL 20 MEQ PACKET/ ORAL SOLN NG SCH (09:00)
[2021-07-12] MEDS: DULOXETINE HCL 30 MG DELAYED RELEASE PO SCH (09:28)
[2021-07-12] MEDS: METOPROLOL TARTRATE INJ 1 MG/ML VIAL IV SCH ×2 (09:29→22:42)
[2021-07-12] MEDS ORDERED: DEXTROSE 5% 1,000 ML IV ONE (12:30)
[2021-07-12] MEDS ORDERED: CHLOROTHIAZIDE SODIUM 500 MG VIAL IV ONE (12:30)
[2021-07-12 14:18] LABS: CREATINE KINASE MB 0.9 ng/mL (0-5.0)
[2021-07-13] VITALS (7 sets, daily range): BP systolic 86–128; BP diastolic 27–78
[2021-07-13] MEDS: VANCOMYCIN 250MG/5ML ORAL SOLN NG SCH ×2 (06:03→11:46)
[2021-07-13] MEDS: METRONIDAZOLE 500MG/NS 100ML 100 ML IV SCH (06:03)
[2021-07-13] MEDS: DULOXETINE HCL 30 MG DELAYED RELEASE PO SCH (08:54)
[2021-07-13] MEDS: Morphine 2mg Syringe 2 MG/ML SYR IV PRN ×2 (09:13→11:46)
[2021-07-13] MEDS: METOPROLOL TARTRATE INJ 1 MG/ML VIAL IV SCH (09:13)
[2021-07-13] MEDS ORDERED: Morphine 2mg Syringe 2 MG/ML SYR IV PRN (12:30)
[2021-07-13] MEDS ORDERED: LORAZEPAM INJ 2 MG/ML VIAL IV PRN (12:30)
== END 2021-07-13 13:40 | disposition expired | DRG 871 ==
LOC: ER 17:51 → ERHOLD 20:34 → MED/SURG 22:15 → OBSVTOIN 06-29 17:36 → IMCU 07-02 22:57 → ICU 07-09 11:57 → MED/SURG3 07-10 10:00
PROVIDERS: ADMIT Internal Medicine; ATTEND Internal Medicine
PROC: 009U3ZX Drainage of Spinal Canal, Percutaneous Approach, Diagnostic (ICD-10-PCS; 2021-06-28)
PROC: 05HY33Z Insertion of Infusion Device into Upper Vein, Percutaneous Approach (ICD-10-PCS; principal; 2021-07-02)
PROC: 30243R1 Transfusion of Nonautologous Platelets into Central Vein, Percutaneous Approach (ICD-10-PCS; 2021-07-06)
PROC: 30243N1 Transfusion of Nonautologous Red Blood Cells into Central Vein, Percutaneous Approach (ICD-10-PCS; 2021-07-07)
DX: A41.9 Sepsis, unspecified organism (principal); J96.01 Acute respiratory failure with hypoxia; I50.23 Acute on chronic systolic (congestive) heart failure; J69.0 Pneumonitis due to inhalation of food and vomit; G93.41 Metabolic encephalopathy; I13.0 Hypertensive heart and chronic kidney disease with heart failure and stage 1 through stage 4 chronic kidney disease, or unspecified chronic kidney disease; N39.0 Urinary tract infection, site not specified; E87.2 Acidosis; N17.9 Acute kidney failure, unspecified; E87.0 Hyperosmolality and hypernatremia; A04.72 Enterocolitis due to Clostridium difficile, not specified as recurrent; D68.9 Coagulation defect, unspecified; M32.9 Systemic lupus erythematosus, unspecified; R62.7 Adult failure to thrive; E87.6 Hypokalemia; E66.9 Obesity, unspecified; Z68.31 Body mass index [BMI] 31.0-31.9, adult; D69.6 Thrombocytopenia, unspecified; Z91.81 History of falling; B96.1 Klebsiella pneumoniae [K. pneumoniae] as the cause of diseases classified elsewhere; N18.30 Chronic kidney disease, stage 3 unspecified; M06.9 Rheumatoid arthritis, unspecified; Z79.899 Other long term (current) drug therapy; E83.39 Other disorders of phosphorus metabolism; Z66 Do not resuscitate; E83.51 Hypocalcemia; D50.0 Iron deficiency anemia secondary to blood loss (chronic); T36.95XA Adverse effect of unspecified systemic antibiotic, initial encounter; Z68.28 Body mass index [BMI] 28.0-28.9, adult; F17.200 Nicotine dependence, unspecified, uncomplicated; Z20.822 Contact with and (suspected) exposure to COVID-19; W19.XXXA Unspecified fall, initial encounter; Z86.73 Personal history of transient ischemic attack (TIA), and cerebral infarction without residual deficits; G89.4 Chronic pain syndrome; J43.9 Emphysema, unspecified; Z78.1 Physical restraint status
CPT/HCPCS: 36415; 36600; 62328; 70450; 71045; 71260; 72110; 72125; 72170; 74018; 74176; 74230; 74470; 80048; 80053; 80061; 81001; 82270; 82550; 82553; 82805; 82945; 82948; 83036; 83605; 83735; 83880; 84100; 84157; 84443; 84484; 85025; 85610; 86850; 86900; 86920; 87040; 87070; 87086; 87186; 87205; 87252; 87493; 89051; 93005; 93306; 94664; 94799; 96360; 97139; 99251; 99284; G0378; J0330; J0456; J0610; J0692; J0696; J1630; J1652; J1940; J2001; J2060; J2250; J2270; J2405; J2920; J3010; J3430; J3475; J3480; J7030; J7050; J7060; J7070; J7121; P9016; P9034; Q9967; U0002